=== PATIENT | female | born 1945 | race Caucasian/White ===

== ENCOUNTER 2018-06-16 23:56 | Emergency (ER) | payer MEDICARE, OTHER ==
--- NOTE | 2018-06-17 00:34 | EDM.PDOC ---
ED HPI GENERAL MEDICAL PROBLEM - General Chief Complaint: General Stated Complaint: BLADDER INFECTION Time Seen by Provider: 06/16/18 23:56 Source of Information: Reports: Patient, Family History Limitations: Reports: No Limitations - History of Present Illness INITIAL COMMENTS - FREE TEXT/NARRATIVE: 73 y.o.w.f with a H/O arthritis came to the ed with frequent, painful urinations and shivering. Pt did not feel well since Sunday but woke au at 11 pm on Sunday with sudden onset of painful urinations and shivering. Pt did not have a bladder infection for a long time. She has pain at her left and right flank as well. No N/V no C/P. No other acute med issues. BP 146/111 Pulse 110 RR 20 Pulse ox 100% on RA Temp 36.6 Onset Date: 06/16/18 Onset Time: 23:00 Duration: Hour(s): Location: Reports: Back, Pelvis Quality: Reports: Ache, Burning, Dull Severity: Moderate Improves with: Reports: Medication, Rest Worsens with: Reports: None Context: Reports: Other Associated Symptoms: Reports: Fever/Chills - Related Data Allergies Allergy/AdvReac Type Severity Reaction Status Date / Time indomethacin [From Indocin] Allergy unknown Verified 06/17/18 00:55 morphine sulfate Allergy Itching Verified 06/17/18 00:55 [From Duramorph (PF)] Sulfa (Sulfonamide Allergy UNKNOWN Verified 06/17/18 00:55 Antibiotics) Home Meds: Home Meds Ca Carbonate/Vitamin D3/Vit K [Calcium + D Soft Chewable Tab] 1 tab PO BIDMEALS 03/03/15 [History] Lisinopril [Prinivil] 10 mg PO DAILY 03/03/15 [History] Multivitamin [Multivitamins] 1 each PO DAILY 03/03/15 [History] Simvastatin [Zocor] 20 mg PO BEDTIME 03/03/15 [History] Zinc 50 mg PO BEDTIME 03/03/15 [History] Docusate Sodium/Sennosides [Senokot-S] 2 each PO DAILY PRN 11/09/15 [History] Lisinopril/Hydrochlorothiazide [Lisinopril-Hctz 20-12.5 mg Tab] 1 each PO DAILY 11/22/15 [History] [place]-3/DHA/Epa/Fish Oil [[place]-3 Fish Oil 1,000 MG Sfgl] 1,000 mg PO BID [History] Acetaminophen [Tylenol Extra Strength] 500 mg PO Q6H 06/17/18 [History] Ascorbate Calcium [Vitamin C] 500 mg PO DAILY 06/17/18 [History] Cholecalciferol (Vitamin D3) [Vitamin D3] 4,000 unit PO DAILY 06/17/18 [History] Levofloxacin [Levaquin] 500 mg PO DAILY #10 tablet 06/17/18 [Rx] Lutein 20 mg PO DAILY 06/17/18 [History] Phenazopyridine HCl [Pyridium] 200 mg PO Q8HR #9 tablet 06/17/18 [Rx] Past Medical History HEENT History: Reports: Cataract, Other (See Below) Other HEENT History: ASTIGMATISM Cardiovascular History: Reports: High Cholesterol, Hypertension Respiratory History: Reports: None Gastrointestinal History: Reports: GERD Genitourinary History: Reports: Urinary Incontinence Other Genitourinary History: URINARY URGENCY. 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 Neurological History: Reports: None Other Neuro History: CHRONIC NUMBNESS OF LEFT LEFT ET IT ALSO FEELS COLD AT NIGHT. USES SPECIAL SLEEVE TO KEEP WARM. Psychiatric History: Reports: None Endocrine/Metabolic History: Reports: None Hematologic History: Reports: Anticoagulation Therapy, Blood Transfusion(s) Other Hematologic History: AFTER KNEE REPLACEMENT Immunologic History: Reports: None Oncologic (Cancer) History: Reports: Basal Cell Carcinoma Other Oncologic History: ON BACK Dermatologic History: Reports: None Other Dermatologic History: RIGHT INNER ANKLE - Infectious Disease History Infectious Disease History: Reports: Chicken Pox, Measles, Mumps, Shingles - Past Surgical History Head Surgeries/Procedures: Reports: None HEENT Surgical History: Reports: Adenoidectomy, Tonsillectomy, Other (See Below) GI Surgical History: Reports: Appendectomy, Colonoscopy, Hernia, Inguinal Female Surgical History: Reports: Breast Biopsy, Hysterectomy, Other (See Below) Neurological Surgical History: Reports: Discectomy Musculoskeletal Surgical History: Reports: Knee Replacement, Other (See Below) Social & Family History - Family History HEENT: Reports: Impaired Vision Cardiac: Reports: High Cholesterol GI: Reports: Colon Polyps, Other (See Below) Other GI Family History: mother colo rectal cancer : Reports: Diabetic Nephropathy OBGYN: Reports: Musculoskeletal: Reports: Arthritis, Back pain, Chronic, Osteoarthritis Endocrine/Metabolic: Reports: Diabetes, Type I, Osteoporosis Oncologic: Reports: Colon, Leukemia - Tobacco Use Smoking Status *Q: Never Smoker - Caffeine Use Caffeine Use: Reports: Tea ED ROS GENERAL - Review of Systems Review Of Systems: See Below Constitutional: Reports: Chills HEENT: Reports: No Symptoms Respiratory: Reports: No Symptoms Cardiovascular: Reports: No Symptoms Endocrine: Reports: No Symptoms GI/Abdominal: Reports: No Symptoms : Reports: Dysuria, Frequency Musculoskeletal: Reports: No Symptoms Skin: Reports: No Symptoms Neurological: Reports: No Symptoms Psychiatric: Reports: No Symptoms Hematologic/Lymphatic: Reports: No Symptoms Immunologic: Reports: No Symptoms ED EXAM, GENERAL - Physical Exam Exam: See Below Exam Limited By: Other (shivering, pt refused blood work and pelvic exam) General Appearance: Alert, WD/WN, Moderate Distress, Thin Eye Exam: Bilateral Eye: Normal Inspection Ears: Normal External Exam Ear Exam: Bilateral Ear: Auricle Normal Nose: Normal Inspection, Normal Mucosa Throat/Mouth: Normal Lips, Normal Voice, No Airway Compromise Head: Atraumatic, Normocephalic Neck: Normal Inspection, Supple, Non-Tender, Full Range of Motion Respiratory/Chest: No Respiratory Distress, Lungs Clear, Normal Breath Sounds, No Accessory Muscle Use, Chest Non-Tender Cardiovascular: Normal Peripheral Pulses, Regular Rate, Rhythm, No Edema, No Gallop GI/Abdominal: Normal Bowel Sounds, Tender (suprapubic) (Female) Exam: Deferred Rectal (Female) Exam: Deferred Back Exam: Normal Inspection, Full Range of Motion Extremities: Normal Inspection, Normal Range of Motion, Non-Tender, No Pedal Edema Neurological: Alert, Oriented, CN II-XII Intact, Normal Cognition, Normal Gait Psychiatric: Normal Affect, Normal Mood Skin Exam: Warm, Dry, Intact, Normal Color, No Rash Lymphatic: No Adenopathy Course - Vital Signs Text/Narrative:: 73 y.o.w.f with a H/O arthritis came to the ed with frequent, painful urinations and shivering. Pt did not feel well since Sunday but woke au at 11 pm on Sunday with sudden onset of painful urinations and shivering. Pt did not have a bladder infection for a long time. She has pain at her left and right flank as well. No N/V no C/P. No other acute med issues. BP 146/111 Pulse 110 RR 20 Pulse ox 100% on RA Temp 36.6 PE: WNWD W F with shivering and Dysuria Labs: UA ps for UTI with microscopic. hematuria. Pt refused blood work including Blood cultures. She said "let's go with a UTI" Impression: UTI Tx: Levaquin, Pyridium, Benadryl Reexam: Improved Plan: D/C with instructions Last Recorded V/S: Last Vital Signs Temp 36.8 C 06/16/18 23:56 Pulse 110 H 06/16/18 23:56 Resp 20 06/16/18 23:56 BP 146/111 H 06/16/18 23:56 Pulse Ox 100 06/16/18 23:56 - Orders/Labs/Meds Orders: Active Orders 24 hr Category Date Time Status CULTURE URINE [RM] Stat Lab 06/17/18 00:18 Received Labs: Laboratory Tests 06/17/18 Range/Units 00:18 Urine Color Yellow (YELLOW) Urine Appearance Slightly cloudy (CLEAR) Urine pH 6.5 (5.0-6.5) Ur Specific [place] 1.015 (1.010-1.025) Urine Protein Trace (NEGATIVE) mg/dL Urine Glucose (UA) Normal (NORMAL) mg/dL Urine Ketones Negative (NEGATIVE) mg/dL Urine Occult Blood Moderate H (NEGATIVE) Urine Nitrite Negative (NEGATIVE) Urine Bilirubin Negative (NEGATIVE) Urine Urobilinogen Normal (NEGATIVE) mg/dL Ur Leukocyte Esterase Large H (NEGATIVE) Urine RBC 5-10 H (0-5) Urine WBC 40-50 H (0-5) Ur Squamous Epith Cells Few H (NS,R,O) Urine Bacteria Moderate H (NS) Urine Mucus Few H (NS) Meds: Medications Discontinued Medications Generic Name Dose Route Start Last Admin Trade Name Freq PRN Reason Stop Dose Admin Diphenhydramine HCl 50 mg 06/17/18 00:51 06/17/18 00:54 Benadryl PO 06/17/18 00:52 50 mg ONETIME ONE Administration Levofloxacin 500 mg 06/17/18 00:43 06/17/18 00:46 Levaquin PO 06/17/18 00:44 500 mg ONETIME ONE Administration Phenazopyridine HCl 95 mg 06/17/18 00:43 06/17/18 00:47 Urinary Pain Relief PO 06/17/18 00:44 95 mg TIDPC STA Administration Departure - Departure Time of Disposition: 00:48 Disposition: Home, Self-Care 01 Condition: Good Clinical Impression: UTI (urinary tract infection) Qualifiers: Urinary tract infection type: acute cystitis Hematuria presence: without hematuria Qualified Code(s): N30.00 - Acute cystitis without hematuria - Discharge Information Prescriptions: Phenazopyridine HCl [Pyridium] 200 mg PO Q8HR #9 tablet Levofloxacin [Levaquin] 500 mg PO DAILY #10 tablet Instructions: Phenazopyridine tablets, Urinary Tract Infection, Adult, Easy-to- Read, Levofloxacin tablets Referrals: PCP,None [Primary Care Provider] - Forms: ED Department Discharge Additional Instructions: Please increase water intake, please take the Antibiotics and Pyridium as recommended, please f/u, please come back if your symptoms get worse acutely. - My Orders Last 24 Hours: My Active Orders 06/17/18 00:18 CULTURE URINE [RM] Stat - Assessment/Plan Last 24 Hours: My Active Orders 06/17/18 00:18 CULTURE URINE [RM] Stat
[2018-06-17] MEDS ORDERED: Phenazopyridine 95 MG Tab PO STA (00:43)
[2018-06-17] MEDS ORDERED: Levofloxacin 500 MG Tab PO ONE (00:43)
[2018-06-17] MEDS ORDERED: diphenhydrAMINE 50 MG Cap PO ONE (00:51)
[2018-06-17 01:08] VITALS: BP 160/103
== END 2018-06-17 01:02 | disposition home or self-care (01) ==
LOC: FB.ED 23:56
DX: N30.00 Acute cystitis without hematuria (principal); I10 Essential (primary) hypertension; E78.00 Pure hypercholesterolemia, unspecified; K21.9 Gastro-esophageal reflux disease without esophagitis; Z88.5 Allergy status to narcotic agent; Z79.899 Other long term (current) drug therapy; Z88.2 Allergy status to sulfonamides; Z88.8 Allergy status to other drugs, medicaments and biological substances
CPT/HCPCS: 81001; 87086; 87088; 87186; 99283; A9270-GY

== ENCOUNTER 2020-04-18 11:14 | Emergency (ER) | payer MEDICARE, OTHER ==
[2020-04-18 11:42] VITALS: BP 122/58; PULSE 78
[2020-04-18] MEDS ORDERED: Sodium Chloride 0.9% 10 ML Syringe FLUSH PRN (11:50)
[2020-04-18] MEDS ORDERED: Sodium Chloride 0.9% 1,000 ML IV ONE (11:50)
--- NOTE | 2020-04-18 11:56 | EDM.PDOC ---
ED HPI GENERAL MEDICAL PROBLEM - General Chief Complaint: Syncope Stated Complaint: FELT LIKE SHE WAS GOING TO PASS OUT Time Seen by Provider: 04/18/20 11:51 Source of Information: Reports: Patient History Limitations: Reports: No Limitations - History of Present Illness INITIAL COMMENTS - FREE TEXT/NARRATIVE: Patient developed "air hunger," became lightheaded and diaphoretic while seated in restoration this morning. Bystander states "she turned stephens." Patient did not lose consciousness but appeared confused. She received her first COVID vaccine yesterday. Denies chest discomfort, fever, or urinary complaints. Onset: Today Duration: Hour(s): (2) - Related Data Allergies Allergy/AdvReac Type Severity Reaction Status Date / Time indomethacin [From Indocin] Allergy unknown Verified 04/18/20 11:35 morphine sulfate Allergy Itching Verified 04/18/20 11:35 [From Duramorph (PF)] Sulfa (Sulfonamide Allergy UNKNOWN Verified 04/18/20 11:35 Antibiotics) Home Meds: Home Meds Calcium Carb/Vitamin D3/Vit K1 [Calcium + D Soft Chewable Tab] 1 tab PO BIDMEALS 03/03/15 [History] Multivitamin [Multivitamins] 1 each PO DAILY 03/03/15 [History] Simvastatin [Zocor] 20 mg PO BEDTIME 03/03/15 [History] Zinc 50 mg PO BEDTIME 03/03/15 [History] lisinopriL [Prinivil] 10 mg PO DAILY 03/03/15 [History] Docusate Sodium/Sennosides [Senokot-S] 2 each PO DAILY PRN 11/09/15 [History] Lisinopril/Hydrochlorothiazide [Lisinopril-Hctz 20-12.5 mg Tab] 1 each PO DAILY 11/22/15 [History] [place]-3/DHA/Epa/Fish Oil [[place]-3 Fish Oil 1,000 MG Sfgl] 1,000 mg PO BID 11/22/15 [History] Acetaminophen [Tylenol Extra Strength] 500 mg PO Q6H 06/17/18 [History] Ascorbate Calcium [Vitamin C] 500 mg PO DAILY 06/17/18 [History] Cholecalciferol (Vitamin D3) [Vitamin D3] 4,000 unit PO DAILY 06/17/18 [History] Lutein 20 mg PO DAILY 06/17/18 [History] Past Medical History HEENT History: Reports: Cataract, Other (See Below) Other HEENT History: ASTIGMATISM Cardiovascular History: Reports: High Cholesterol, Hypertension Respiratory History: Reports: None Gastrointestinal History: Reports: GERD Genitourinary History: Reports: Urinary Incontinence Other Genitourinary History: URINARY URGENCY. 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 Neurological History: Reports: None Other Neuro History: CHRONIC NUMBNESS OF LEFT LEFT ET IT ALSO FEELS COLD AT NIGHT. USES SPECIAL SLEEVE TO KEEP WARM. Psychiatric History: Reports: None Endocrine/Metabolic History: Reports: None Hematologic History: Reports: Anticoagulation Therapy, Blood Transfusion(s) Other Hematologic History: AFTER KNEE REPLACEMENT Immunologic History: Reports: None Oncologic (Cancer) History: Reports: Basal Cell Carcinoma Other Oncologic History: ON BACK Dermatologic History: Reports: None Other Dermatologic History: RIGHT INNER ANKLE - Infectious Disease History Infectious Disease History: Reports: Chicken Pox, Measles, Mumps, Shingles - Past Surgical History Head Surgeries/Procedures: Reports: None HEENT Surgical History: Reports: Adenoidectomy, Tonsillectomy, Other (See Below) GI Surgical History: Reports: Appendectomy, Colonoscopy, Hernia, Inguinal Female Surgical History: Reports: Breast Biopsy, Hysterectomy, Other (See Below) Neurological Surgical History: Reports: Discectomy Musculoskeletal Surgical History: Reports: Knee Replacement, Other (See Below) Social & Family History - Family History HEENT: Reports: Impaired Vision Cardiac: Reports: High Cholesterol GI: Reports: Colon Polyps, Other (See Below) Other GI Family History: mother colo rectal cancer : Reports: Diabetic Nephropathy OBGYN: Reports: Musculoskeletal: Reports: Arthritis, Back pain, Chronic, Osteoarthritis Endocrine/Metabolic: Reports: Diabetes, Type I, Osteoporosis Oncologic: Reports: Colon, Leukemia - Caffeine Use Caffeine Use: Reports: Tea ED ROS GENERAL - Review of Systems Review Of Systems: Comprehensive ROS is negative, except as noted in HPI. Musculoskeletal: Reports: Back Pain (chronic) - Physical Exam Exam: See Below Exam Limited By: No Limitations General Appearance: Alert, WD/WN, No Apparent Distress Eye Exam: Bilateral Eye: EOMI, PERRL Ears: Normal External Exam Nose: Normal Inspection Throat/Mouth: Normal Inspection, No Airway Compromise Head Exam: Atraumatic, Normocephalic Neck: Supple Respiratory/Chest: No Respiratory Distress, Lungs Clear, Normal Breath Sounds Cardiovascular: Regular Rate, Rhythm, No Murmur GI/Abdominal: Soft, No Distention, Tender (mild generalized) Neuro Exam (Abbreviated): Alert, Normal Cognition, No Motor/Sensory Deficits Extremities: Normal Range of Motion Skin Exam: Warm, Dry, Intact #1 Interpretation EKG Date: 04/18/20 Time: 11:16 Rhythm: NSR Rate (Beats/Min): 79 [place]: Normal P-Wave: Present QRS: Normal ST-T: Normal QT: Normal Comparison: No Change (11/09/15) Course - Vital Signs Last Recorded V/S: Last Vital Signs Temp 36.7 C 04/18/20 11:15 Pulse 78 04/18/20 11:15 Resp 16 04/18/20 11:15 BP 122/58 L 04/18/20 11:15 Pulse Ox 100 04/18/20 11:15 Orthostatic Blood Pressure [ 108/48 Standing] Orthostatic Blood Pressure [ 116/58 Sitting] Orthostatic Blood Pressure [ 121/53 Supine] - Orders/Labs/Meds Orders: Active Orders 24 hr Category Date Time Status EKG Documentation Completion [RC] ASDIRECTED Care 04/18/20 11:49 Active Sodium Chloride 0.9% [Saline Flush] Med 04/18/20 11:50 Active 10 ml FLUSH ASDIRECTED PRN Saline Lock Insert [OM.PC] Routine Oth 04/18/20 11:50 Ordered EKG 12 Lead [EK] Stat Ther 04/18/20 11:49 Ordered Medication Orders Sodium Chloride (Saline Flush) 10 ml FLUSH ASDIRECTED PRN PRN Reason: Keep Vein Open Last Admin: 04/18/20 12:10 Dose: 10 ml Documented by: JUANCARLOS Labs: Laboratory Tests 04/18/20 04/18/20 04/18/20 Range/Units 11:57 11:57 11:57 WBC 5.9 (3.0-10.3) x10-3/uL RBC 3.93 (3.60-5.20) x10(6)uL Hgb 11.9 (11.4-15.5) g/dL Hct 36.8 (34.2-48.2) % MCV 93.7 (76.7-100.5) fL MCH 30.4 (23.9-33.9) pg MCHC 32.4 (31.9-34.8) g/dL RDW 12.2 L (12.3-16.5) % Plt Count 294 (151-488) x10(3)uL MPV 6.0 L (7.1-12.4) fL Neut % (Auto) 85.6 H (30.8-76.2) % Lymph % (Auto) 4.2 L (18.4-52.1) % [place] % (Auto) 9.3 (4.4-15.7) % Eos % (Auto) 0.5 L (0.6-8.1) % Baso % (Auto) 0.4 (0.2-1.5) % Neut # (Auto) 5.0 (1.5-6.3) x10-3/uL Lymph # (Auto) 0.2 L (1.0-4.4) x10-3/uL [place] # (Auto) 0.5 (0.3-1.0) x10-3/uL Eos # (Auto) 0.0 (0.0-0.8) x10-3/uL Baso # (Auto) 0.0 (0.0-0.1) x10-3/uL Sodium 137 (135-145) mmol/L Potassium 3.5 (3.5-5.3) mmol/L Chloride 100 (100-110) mmol/L Carbon Dioxide 30 (21-32) mmol/L BUN 14 (7-18) mg/dL Creatinine 0.9 (0.55-1.02) mg/dL Est Cr Clr Drug Dosing 51.71 mL/min Estimated GFR (MDRD) > 60 (>60) BUN/Creatinine Ratio 15.6 (9-20) Glucose 158 H (80-116) mg/dL Calcium 8.4 L (8.6-10.2) mg/dL Total Bilirubin 0.6 (0.1-1.3) mg/dL AST 16 (5-25) IU/L ALT 24 (12-36) U/L Alkaline Phosphatase 67 (56-112) IU/L Troponin I 5.2 (4.0-60.3) pg/mL Total Protein 7.1 (6.0-8.0) g/dL Albumin 3.9 (3.2-4.6) g/dL Globulin 3.2 g/dL Albumin/Globulin Ratio 1.2 Urine Color (YELLOW) Urine Appearance (CLEAR) Urine pH (5.0-6.5) Ur Specific [place] (1.010-1.025) Urine Protein (NEGATIVE) mg/dL Urine Glucose (UA) (NORMAL) mg/dL Urine Ketones (NEGATIVE) mg/dL Urine Occult Blood (NEGATIVE) Urine Nitrite (NEGATIVE) Urine Bilirubin (NEGATIVE) Urine Urobilinogen (NEGATIVE) mg/dL Ur Leukocyte Esterase (NEGATIVE) Urine RBC (0-5) Urine WBC (0-5) Ur Squamous Epith Cells (NS,R,O) Amorphous Sediment Urine Bacteria (NS) 04/18/20 Range/Units 12:15 WBC (3.0-10.3) x10-3/uL RBC (3.60-5.20) x10(6)uL Hgb (11.4-15.5) g/dL Hct (34.2-48.2) % MCV (76.7-100.5) fL MCH (23.9-33.9) pg MCHC (31.9-34.8) g/dL RDW (12.3-16.5) % Plt Count (151-488) x10(3)uL MPV (7.1-12.4) fL Neut % (Auto) (30.8-76.2) % Lymph % (Auto) (18.4-52.1) % [place] % (Auto) (4.4-15.7) % Eos % (Auto) (0.6-8.1) % Baso % (Auto) (0.2-1.5) % Neut # (Auto) (1.5-6.3) x10-3/uL Lymph # (Auto) (1.0-4.4) x10-3/uL [place] # (Auto) (0.3-1.0) x10-3/uL Eos # (Auto) (0.0-0.8) x10-3/uL Baso # (Auto) (0.0-0.1) x10-3/uL Sodium (135-145) mmol/L Potassium (3.5-5.3) mmol/L Chloride (100-110) mmol/L Carbon Dioxide (21-32) mmol/L BUN (7-18) mg/dL Creatinine (0.55-1.02) mg/dL Est Cr Clr Drug Dosing mL/min Estimated GFR (MDRD) (>60) BUN/Creatinine Ratio (9-20) Glucose (80-116) mg/dL Calcium (8.6-10.2) mg/dL Total Bilirubin (0.1-1.3) mg/dL AST (5-25) IU/L ALT (12-36) U/L Alkaline Phosphatase (56-112) IU/L Troponin I (4.0-60.3) pg/mL Total Protein (6.0-8.0) g/dL Albumin (3.2-4.6) g/dL Globulin g/dL Albumin/Globulin Ratio Urine Color Yellow (YELLOW) Urine Appearance Cloudy (CLEAR) Urine pH 7.0 H (5.0-6.5) Ur Specific [place] 1.010 (1.010-1.025) Urine Protein Trace (NEGATIVE) mg/dL Urine Glucose (UA) Normal (NORMAL) mg/dL Urine Ketones Negative (NEGATIVE) mg/dL Urine Occult Blood Negative (NEGATIVE) Urine Nitrite Negative (NEGATIVE) Urine Bilirubin Negative (NEGATIVE) Urine Urobilinogen Normal (NEGATIVE) mg/dL Ur Leukocyte Esterase Negative (NEGATIVE) Urine RBC 0-5 (0-5) Urine WBC 0-5 (0-5) Ur Squamous Epith Cells Occasional (NS,R,O) Amorphous Sediment Many Urine Bacteria Not seen (NS) Meds: Medications Generic Name Dose Route Start Last Admin Trade Name Freq PRN Reason Stop Dose Admin Sodium Chloride 10 ml 04/18/20 11:50 04/18/20 12:10 Saline Flush FLUSH 10 ml ASDIRECTED PRN Administration Keep Vein Open Discontinued Medications Generic Name Dose Route Start Last Admin Trade Name Freq PRN Reason Stop Dose Admin Sodium Chloride 1,000 mls @ 999 mls/hr 04/18/20 11:50 04/18/20 12:10 Normal Saline IV 04/18/20 12:50 500 mls/hr .BOLUS ONE Administration - Re-Assessments/Exams Free Text/Narrative Re-Assessment/Exam: 02/14/21 13:36 Patient feels better after IVF. Vital signs stable. Orthostatics normal. Departure - Departure Time of Disposition: 13:38 Disposition: Home, Self-Care 01 Condition: Good Clinical Impression: Near syncope - Discharge Information *PRESCRIPTION DRUG MONITORING PROGRAM REVIEWED*: No *COPY OF PRESCRIPTION DRUG MONITORING REPORT IN PATIENT LISA: Not Applicable Instructions: Near-Syncope, Ctmd-gu-Dfos Referrals: Negrita Heath NP [Primary Care Provider] - 2 Days Forms: ED Department Discharge Additional Instructions: Rest, drink plenty of fluids. Follow up with your primary physician in 2-3 days. Return to the ER if symptoms worsen. Sepsis Event Note (ED) - Evaluation Sepsis Screening Result: No Definite Risk - Focused Exam Vital Signs: Vital Signs Temp Pulse Resp BP Pulse Ox 04/18/20 11:15 36.7 C 78 16 122/58 L 100 - My Orders Last 24 Hours: My Active Orders 04/18/20 11:49 EKG Documentation Completion [RC] ASDIRECTED EKG 12 Lead [EK] Stat 04/18/20 11:50 Sodium Chloride 0.9% [Saline Flush] 10 ml FLUSH ASDIRECTED PRN Saline Lock Insert [OM.PC] Routine - Assessment/Plan Last 24 Hours: My Active Orders 04/18/20 11:49 EKG Documentation Completion [RC] ASDIRECTED EKG 12 Lead [EK] Stat 04/18/20 11:50 Sodium Chloride 0.9% [Saline Flush] 10 ml FLUSH ASDIRECTED PRN Saline Lock Insert [OM.PC] Routine
== END 2020-04-18 13:45 | disposition home or self-care (01) ==
LOC: FB.ED 11:14
DX: R55 Syncope and collapse (principal); E78.00 Pure hypercholesterolemia, unspecified; I10 Essential (primary) hypertension; Z88.8 Allergy status to other drugs, medicaments and biological substances; Z88.5 Allergy status to narcotic agent; Z88.2 Allergy status to sulfonamides
CPT/HCPCS: 36415; 80053; 81001; 84484; 85025; 93005; 99284-25; J7030